=== PATIENT | female | born 1975 | race Caucasian/White ===

== ENCOUNTER 2018-10-23 00:22 | Emergency (ER) | payer OTHER ==
[~2018-10-23] VITALS: Ht 152.4 cm; Wt 81.3 kg
--- NOTE | 2018-10-23 01:07 | REPVR ---
EXAM: CT Head Without Contrast EXAM DATE/TIME: 10/23/2018 12:34 AM CLINICAL HISTORY: 43 years old, female; Injury or trauma; Fall; Initial encounter; Concussion / head injury; Additional info: Significant head lac/+etoh TECHNIQUE: Imaging protocol: Axial computed tomography images of the head/brain without contrast. Radiation optimization: All CT scans at this facility use at least one of these dose optimization techniques: automated exposure control; mA and/or kV adjustment per patient size (includes targeted exams where dose is matched to clinical indication); or iterative reconstruction. COMPARISON: No relevant prior studies available. FINDINGS: Brain: No acute intracranial hemorrhage. No acute mass effect. Cortical weinstein-white matter differentiation is preserved. There are no abnormal white matter changes. Ventricles: Normal. No ventriculomegaly. Bones/joints: Unremarkable. No acute fracture. Sinuses: Visualized sinuses are unremarkable. No acute sinusitis. Mastoid air cells: Visualized mastoid air cells are unremarkable. No mastoid effusion. Soft tissues: Right frontal scalp swelling. Left frontal scalp laceration IMPRESSION: 1. No acute intracranial hemorrhage. 2. Left frontal scalp laceration. Electronically signed by: Gwen Medina On 10/23/2018 01:07:04 AM
[2018-10-23] MEDS ORDERED: ADACEL/BOOSTRIX VACCINE (DIPHTH/PERTUSS/ACELL/TETANUS)0.5ML SYR (90715) IM ONE (01:45)
[2018-10-23 02:09] VITALS: BP 136/88
== END 2018-10-23 02:37 | disposition home or self-care (01) ==
LOC: M ED 00:22
DX: S01.01XA Laceration without foreign body of scalp, initial encounter (principal); W22.8XXA Striking against or struck by other objects, initial encounter; Y92.018 Other place in single-family (private) house as the place of occurrence of the external cause

== ENCOUNTER → 2022-09-04 | Outpatient (CLI) | payer OTHER | LOC: M CARPUL 08:04 | PROVIDERS: ATTEND Nurse Practitioner Family | DX: R06.02 Shortness of breath (principal) ==

== ENCOUNTER → 2022-09-12 | Outpatient (CLI) | payer OTHER | LOC: M PLAIMG 08:52 | PROVIDERS: ATTEND Nurse Practitioner Family | DX: R06.02 Shortness of breath (principal) ==

== ENCOUNTER → 2023-04-03 | Outpatient (CLI) | payer OTHER | LOC: M PLAIMG 07:49 | PROVIDERS: ATTEND Nurse Practitioner Family | DX: R91.8 Other nonspecific abnormal finding of lung field (principal) ==